=== PATIENT | female | born 1970 | race Asian ===

== ENCOUNTER 2017-02-18 09:32 | Inpatient (IN) | payer BC ==
[~2017-02-18] VITALS: Ht 160 cm; Wt 79.3 kg
[2017-02-18 10:04] LABS: HEMATOCRIT 36.9 % (36.0-46.0); MCH 31.4 PG (29.0-34.0); MCHC 35.8 G/DL (30.0-36.0); MCV 87.9 FL (83-99); MEAN PLAT.VOLUME 10.9 uM^3 (9.5-12.4); PLATELET COUNT 151 K/uL (156-360); RBC DIS.WIDTH-CV 15.9 % (11.8-14.6); WHITE BLOOD COUNT 6.9 K/uL (4.1-10.2)
[2017-02-18 10:12] LABS: CHLORIDE 105 mEq/L (99-109); SODIUM 138 mEq/L (136-147)
[2017-02-18 10:15] LABS: GLUCOSE 82 mg/dL (70-99)
[2017-02-18 10:16] LABS: ANION GAP 11 MEQ/L (2-14)
[2017-02-18 10:17] LABS: TOTAL BILIRUBIN 15.2 mg/dL (0.0-1.0)
[2017-02-18 10:18] LABS: ALKALINE PHOSPHATASE 108 IU/L (3-129); GFR ESTIMATE (CALCULATED) > 59 mL/min/
[2017-02-18 10:19] LABS: UREA NITROGEN (BUN) 11 mg/dL (9-23)
[2017-02-18 10:29] LABS: QUANTITATIVE HCG < 4.0 MIU/ML
[2017-02-18] MEDS ORDERED: CLONIDINE1 EAC1 TD (10:55)
[2017-02-18] MEDS ORDERED: DAILY VITE1 EAC1 PO (10:55)
[2017-02-18] MEDS ORDERED: REWETTING DROPS20 ML BOTH EYES (10:55)
[2017-02-18 11:20] LABS: INTER. NORMALIZED RATIO 1.5; PTT 32.2 (25-32)
[2017-02-18 11:35] LABS: HBSG INDEX 0.29
[2017-02-18 13:18] LABS: ADD MIUA? YES; BILIRUBIN NEGATIVE; BLOOD MODERATE; GLUCOSE (STRIP) NEGATIVE; KETONES 5; LEUKOCYTES TRACE; NITRITE NEGATIVE; PROTEIN (STRIP) NEGATIVE; SPECIFIC GRAVITY 1.012 (1.000-1.030); UROBILINOGEN 0.2 MG/DL (0.2-1.0)
[2017-02-18 13:20] LABS: COLOR AMBER ((YELLOW))
[2017-02-18 13:58] LABS: BACTERIA 1+ /HPF; CASTS NONE SEEN /LPF; CRYSTALS NONE SEEN; EPITHELIAL CELLS 2+ /HPF; MUCUS 1+ /LPF; RED BLOOD CELLS RARE /HPF (0-5); UCUL ADDED? NO; WHITE BLOOD CELLS 0-5 /HPF (0-5)
[2017-02-18 15:49] VITALS: BP 204/102
[2017-02-18 16:00] VITALS: BP 204/102
[2017-02-18 21:52] VITALS: BP 195/117
[2017-02-18 23:32] VITALS: BP 174/97
[2017-02-19 03:56] VITALS: BP 193/100
[2017-02-19 06:26] VITALS: BP 176/102
[2017-02-19 07:26] LABS: HEMATOCRIT 35.5 % (36.0-46.0); MCH 31.2 PG (29.0-34.0); MCHC 35.2 G/DL (30.0-36.0); MCV 88.5 FL (83-99); MEAN PLAT.VOLUME 11.5 uM^3 (9.5-12.4); PLATELET COUNT 160 K/uL (156-360); RBC DIS.WIDTH-CV 16.2 % (11.8-14.6); RBC DIS.WIDTH-SD 51.9 % (39-53); RED BLOOD COUNT 4.01 M/uL (3.80-5.20); WHITE BLOOD COUNT 5.8 K/uL (4.1-10.2)
[2017-02-19 07:41] LABS: INTER. NORMALIZED RATIO 1.4; PROTHROMBIN TIME 14.6 (9.2-11.2)
[2017-02-19 08:01] VITALS: BP 139/87
[2017-02-19 08:03] LABS: ALKALINE PHOSPHATASE 106 IU/L (3-129); ANION GAP 7 MEQ/L (2-14); CHLORIDE 104 MEQ/L (99-109); GFR ESTIMATE (CALCULATED) > 59 mL/min/; GLUCOSE 123 mg/dL (70-99); POTASSIUM 3.4 MEQ/L (3.7-5.4); SAMPLE HEMOLYSIS CHECK 0; SAMPLE ICTERIC CHECK 3; SAMPLE LIPEMIA CHECK 0; SODIUM 138 MEQ/L (136-147); TOTAL BILIRUBIN 16.9 MG/DL (0.0-1.0); UREA NITROGEN (BUN) 5 mg/dL (9-23)
[2017-02-19 10:26] LABS: ANTI-HEPATITIS A VIRUS (IGM) Nonreactive; HAV INDEX 0.12
[2017-02-19 10:27] LABS: ANTI-HEPATITIS B CORE (IGM) Nonreactive; HBC IgM INDEX 0.08
[2017-02-19 12:20] VITALS: BP 141/75
[2017-02-19 16:58] VITALS: BP 149/90
[2017-02-20 00:30] VITALS: BP 153/93
[2017-02-20 05:35] LABS: MCH 31.1 PG (29.0-34.0); MCHC 35.2 G/DL (30.0-36.0); MCV 88.5 FL (83-99); MEAN PLAT.VOLUME 11.5 uM^3 (9.5-12.4); PLATELET COUNT 159 K/uL (156-360); RBC DIS.WIDTH-CV 16.3 % (11.8-14.6); RBC DIS.WIDTH-SD 52.4 % (39-53); RED BLOOD COUNT 3.73 M/uL (3.80-5.20); WHITE BLOOD COUNT 6.2 K/uL (4.1-10.2)
[2017-02-20 05:56] LABS: INTER. NORMALIZED RATIO 1.4; PROTHROMBIN TIME 14.2 (9.2-11.2); PTT 29.2 (25-32)
[2017-02-20 06:17] LABS: ALKALINE PHOSPHATASE 87 IU/L (3-129); ANION GAP 8 MEQ/L (2-14); CHLORIDE 105 MEQ/L (99-109); GFR ESTIMATE (CALCULATED) > 59 mL/min/; GLUCOSE 110 mg/dL (70-99); POTASSIUM 3.5 MEQ/L (3.7-5.4); SAMPLE HEMOLYSIS CHECK 0; SAMPLE ICTERIC CHECK 3; SAMPLE LIPEMIA CHECK 0; SODIUM 138 MEQ/L (136-147); TOTAL BILIRUBIN 14.8 MG/DL (0.0-1.0); UREA NITROGEN (BUN) 6 mg/dL (9-23)
[2017-02-20 08:06] VITALS: BP 134/76
[2017-02-20 09:41] LABS: ANTI-EPSTEIN-BARR NUCLEAR AG POSITIVE; ANTI-EPSTEIN-BARR VCA IGG POSITIVE; ANTI-EPSTEIN-BARR VCA IGM NEGATIVE
[2017-02-20 12:09] VITALS: BP 122/77
[2017-02-20] MEDS ORDERED: NITROPASTE 2%1 GM TD (15:36)
[2017-02-20] MEDS ORDERED: VALSARTAN160 MG PO (15:36)
[2017-02-20] MEDS ORDERED: Chronulac,Cephulac,E PO (15:36)
[2017-02-20 15:46] VITALS: BP 123/71
[2017-02-20 16:55] LABS: HCV RNA (IU/mL) <15 IU/mL (<15)
[2017-02-20 17:38] LABS: MITOCHONDRIAL (M2) ANTIBODIES+ <=20.0 U (<=20.0)
[2017-02-21 05:28] LABS: DRVVT Mixing Study Interp Not Indicated (()); dRVVT Screen 25 sec (<=45)
[2017-02-21 05:59] LABS: ADD PTT REFLEX? Y; PTT-LA 41 sec (<=40)
[2017-02-23 10:03] LABS: HCV RNA (LOG IU/mL) <1.18 (<1.18)
== END 2017-02-20 18:20 | disposition home or self-care (01) | DRG 442 ==
LOC: EME 09:32 → 3EAST 11:22 → EDOF 11:22 → 3EAST 11:22 → EDOF 11:35 → 3EAST 15:37
PROVIDERS: Emergency Medicine; Family Medicine; Family Medicine Sports Medicine; Internal Medicine Gastroenterology
DX: B17.9 Acute viral hepatitis, unspecified (principal); R17 Unspecified jaundice; I10 Essential (primary) hypertension; R73.9 Hyperglycemia, unspecified
CPT/HCPCS: 74177; 80053; 81003; 82140; 82390; 83516 90; 84702; 85027; 85597 90; 85610; 85613 90; 85730; 85730 90; 86038; 86256 90; 86664; 86665; 86705; 86709; 86803; 87340; 87522 90; 99281; 99285; G0480; J7042